=== PATIENT | female | born 1965 | race Caucasian/White ===

== ENCOUNTER 2017-11-30 20:47 | Inpatient (IN) | payer OTHER ==
--- NOTE | 2017-11-30 20:59 | PDOC ---
History of Present Illness - General History Source: Patient Exam Limitations: No Limitations - History of Present Illness Initial Comments: 11/30/17 21:29 The patient is a 52 year old female with a significant PMH of MS who presents to the emergency department with vomiting since earlier today. The patient reports that she woke up at about 3am with a sudden onset of vomiting. The patient describes her emesis as a dark brom in color initially and now is light brown. She denies any belly pain, or diarrhea. She states that she had a normal bowel movement yesterday. She denies any sick contact. The patient denies any other symptoms. She denies any fever, chills, nausea, constipation or urinary symptoms. She denies any chest pain, shortness of breath, headache or dizziness. The patient denies any other complaints. PAST MEDICAL HISTORY: MS PAST SURGICAL HISTORY: no significant history FAMILY HISTORY: no pertinent history SOCIAL HISTORY: Pt lives with family and is employed. MEDICATIONS: reviewed ALLERGIES: As per nursing notes General: No fevers or chills, no weakness, no weight loss HEENT: No change in vision. No sore throat,. No ear pain CardioVascular: No chest pain or shortness of breath Respiratory:No cough, or wheezing. Gastrointestinal:(+) vomiting. no nausea diarrhea or constipation, No rectal bleeding Genitourinary: No dysuria, hematuria, or frequency Musculoskeletal: No joint or muscle pain or swelling Neurologic: No headache, vertigo, dizziness or loss of consciousness Psychiatric: nor depression Skin: No rashes or easy bruising Endocrine: no increased thirst or abnormal weight change Allergic: no skin or latex allergy All other systems reviewed and normal General: Well-nourished well-developed individual, no acute distress HEENT: (+)dry mucous membrane. Throat: Normal, tonsils normal, no erythema or exudate Neck: Supple, no meningeal signs, no lymphadenopathy Eyes::Pupils equal reactive and round, extraocular motion intact Chest: Nontender to palpation Cardiac: S1-S2 normal, regular rate and rhythm, no murmurs rubs or gallops Respiratory: Lungs clear to auscultation bilateral Abdomen: Soft, nondistended, normal bowel sounds, nontender to palpation diffusely Extremities: Warm, dry, no cyanosis, clubbing, or edema Skin: No rashes Neuro: Alert and oriented x3, nonfocal exam, grossly intact, normal gait Psych: Normal mood and affect Documentation prepared by Cathleen Mayberry, acting as diploma medical assistant for Antione Flores MD. <Cathleen Mayberry - Last Filed: 11/30/17 21:29> - General History Source: Patient Exam Limitations: No Limitations - History of Present Illness Initial Comments: 11/30/17 21:45 A portion of this note was documented by scribe services under my direction. I have reviewed the details of the note, within reason, and agree with the documentation. The case summary and management plan written by me. Assessment and plan: This is a 52-year-old female who comes in complaining of nausea and vomiting otherwise no complaints. Patient will be hydrated and basic workup done. On my exam patient did not have any tenderness and had a normal exam 22:30 Patient still nauseous and vomiting post-Zofran. We'll continue to hydrate and give patient Reglan, patient is workup is all normal with the exception of her lipase which is markedly elevated at 1777. We'll obtain a CAT scan to rule out pancreatitis 11/30/17 23:29 Reevaluation patient complaining of increased epigastric pain radiating to her back. We'll give her some morphine for the pain. Patient will be admitted to a inpatient bed Dr. Altman hospitalist service <Antione Flores I - Last Filed: 12/01/17 00:23> - General Chief Complaint: Nausea/Vomiting Stated Complaint: N/V Time Seen by Provider: 11/30/17 20:55 Past History <Cathleen Mayberry - Last Filed: 11/30/17 21:29> - Past Medical History Asthma: Yes COPD: No Other medical history: MS, RA - Suicide/Smoking/Psychosocial Hx Smoking History: Never smoked Have you smoked in the past 12 months: No Number of Cigarettes Smoked Daily: 0 Information on smoking cessation initiated: No Hx Alcohol Use: No Drug/Substance Use Hx: No Substance Use Type: None <Antione Flores I - Last Filed: 12/01/17 00:23> - Past Medical History Allergies/Adverse Reactions: Allergies Allergy/AdvReac Type Severity Reaction Status Date / Time aspirin Allergy Verified 07/20/15 11:18 Penicillins Allergy Verified 07/20/15 11:18 Home Medications: Ambulatory Orders Dimethyl Fumarate [Tecfidera] 240 mg PO BID 07/27/14 Cetirizine HCl [Zyrtec -] 10 mg PO DAILY 07/20/15 Cholecalciferol (Vitamin D3) [Vitamin D] 1,000 unit PO BID 07/20/15 Famotidine [Pepcid -] 20 mg PO BID #14 tablet 07/20/15 Ondansetron [Zofran -] 4 mg PO TID PRN #21 tablet 07/20/15 *Physical Exam - Vital Signs Last Vital Signs Temp Pulse Resp BP Pulse Ox 98.4 F 89 14 121/70 98 11/30/17 20:48 11/30/17 20:48 11/30/17 20:48 11/30/17 20:48 11/30/17 20:48 <Cathleen Mayberry - Last Filed: 11/30/17 21:29> - Vital Signs Last Vital Signs Temp Pulse Resp BP Pulse Ox 98.4 F 89 14 121/70 98 11/30/17 20:48 11/30/17 20:48 11/30/17 20:48 11/30/17 20:48 11/30/17 20:48 <Antione Flores I - Last Filed: 12/01/17 00:23> ED Treatment Course - LABORATORY CBC & Chemistry Diagram: 11/30/17 21:16 11/30/17 21:16 - ADDITIONAL ORDERS Additional order review: 11/30/17 21:16 RBC 4.56 MCV 96.8 H MCHC 33.5 RDW 13.2 MPV 7.9 Neutrophils % 81.6 Lymphocytes % 11.1 Monocytes % 3.4 L Eosinophils % 2.6 Basophils % 1.3 - Medications Given in the ED: ED Medications Discontinued Medications Generic Name Dose Route Start Last Admin Trade Name Freq PRN Reason Stop Dose Admin Albuterol/Ipratropium 1 amp 11/30/17 21:16 11/30/17 21:19 Duoneb - NEB 11/30/17 21:17 1 amp ONCE ONE Administration Ondansetron HCl 8 mg 11/30/17 21:02 11/30/17 21:19 Zofran Injection IVPB 11/30/17 21:03 8 mg ONCE ONE Administration <Cathleen Mayberry - Last Filed: 11/30/17 21:29> - LABORATORY CBC & Chemistry Diagram: 11/30/17 21:16 11/30/17 21:16 <Antione Flores I - Last Filed: 12/01/17 00:23> *DC/Admit/Observation/Transfer <Cathleen Mayberry - Last Filed: 11/30/17 21:29> <Antione Flores I - Last Filed: 12/01/17 00:23> Diagnosis at time of Disposition: Pancreatitis - Discharge Dispostion Condition at time of disposition: Good - Referrals Referrals: Omar Alfaro MD [Primary Care Provider] - - Patient Instructions - Post Discharge Activity
[2017-11-30] MEDS ORDERED: SODIUM CHLORIDE 1,000 ML IV ONE ×2 (21:02→22:31)
[2017-11-30] MEDS ORDERED: ONDANSETRON 4 MG/2 ML VIAL IVPB ONE (21:02)
[2017-11-30] MEDS ORDERED: ALBUTEROL SO4 2.5/IPRATROPIUM 0.5 INH SOL 3 ML VIAL.NEB. NEB ONE ×2 (21:13→21:16)
[2017-11-30] MEDS ORDERED: ONDANSETRON 4 MG/2 ML VIAL ONE (21:20)
[2017-11-30 21:26] LABS: BASO % 1.3 % (0-2.0); EOS % 2.6 % (0-4.5); HEMATOCRIT 44.1 % (32.4-45.2); HEMOGLOBIN 14.8 GM/dl (10.7-15.3); LYMPH % 11.1 % (8-40); MCH 32.4 pg (25.7-33.7); MCHC 33.5 g/dl (32.0-36.0); MEAN CELL VOLUME 96.8 fl (80-96); MEAN PLT VOLUME 7.9 fl (7.5-11.1); MONO % 3.4 % (3.8-10.2); NEUT % 81.6 % (42.8-82.8); PLATELET COUNT 333 K/MM3 (134-434); RBC 4.56 M/mm3 (3.60-5.2); RDW 13.2 % (11.6-15.6); WHITE BLOOD COUNT 7.5 K/mm3 (4.0-10.8)
[2017-11-30 21:33] LABS: ALBUMIN 4.6 g/dl (3.5-5.0); ALK PHOS 64 U/L (32-92); ANION GAP 10 MMOL/L (8-16); BILIRUBIN,TOTAL 0.9 mg/dl (0.2-1.0); BLOOD UREA NITROGEN 15 mg/dl (7-18); CALCIUM 9.2 mg/dl (8.4-10.2); CHLORIDE 102 mmol/L (98-107); CO2 27 mmol/L (22-28); CREATININE 0.7 mg/dl (0.6-1.3); GLUCOSE,RANDOM 97 mg/dl (74-106); POTASSIUM 3.6 mmol/L (3.5-5.1); SGOT/AST 16 U/L (10-42); SGPT/ALT 17 U/L (10-40); SODIUM 139 mmol/L (136-145); TOT PROT 7.5 g/dl (6.4-8.3)
[2017-11-30] MEDS ORDERED: METOCLOPRAMIDE HCL INJECTION 10 MG/2 ML VIAL IVPUSH ONE (22:31)
[2017-11-30 22:40] LABS: LIPASE 1777 U/L (73-393)
[2017-11-30] MEDS ORDERED: morphine CARPU-JECT 4 MG/1 ML DISP.SYRIN IVPUSH ONE (23:28)
[2017-12-01] MEDS ORDERED: morphine SULFATE 4 MG/ML VIAL ONE (00:45)
[2017-12-01] MEDS ORDERED: ONDANSETRON 4 MG/2 ML VIAL IVPUSH PRN (02:20)
[2017-12-01] MEDS ORDERED: LACTATED RINGERS SOLUTION 1,000 ML IV SCH ×2 (02:30→16:30)
[2017-12-01] MEDS ORDERED: ALBUTEROL SO4 0.083% IH SOL 2.5 MG/3 ML VIAL.NEB. NEB PRN (02:38)
--- NOTE | 2017-12-01 02:58 | HP ---
CHIEF COMPLAINT: nausea/vomiting PCP: Loraine HISTORY OF PRESENT ILLNESS: This is a 52 year old female with a significant past medical history of MS, asthma, s/p lap band 6-8y ago who presented to the ED with nausea and vomiting since 3am 11/30/17. She denies abdominal pain or diarrhea. ER course was notable for: (1) Lipase 1777 (2) CT abd/pel (3) Recent Travel: PAST MEDICAL HISTORY: PAST SURGICAL HISTORY: Social History: Smoking: Alcohol: Drugs: Family History: Allergies aspirin Allergy (Verified 07/20/15 11:18) Penicillins Allergy (Verified 07/20/15 11:18) HOME MEDICATIONS: 3 Medication Instructions Recorded Dimethyl Fumarate [Tecfidera] 240 mg PO BID 07/27/14 Cetirizine HCl [Zyrtec -] 10 mg PO DAILY 07/20/15 Cholecalciferol (Vitamin D3) 1,000 unit PO BID 07/20/15 [Vitamin D] Albuterol Sulfate Inhaler - 2 inh PO Q4H PRN 12/01/17 [Ventolin Hfa Inhaler -] Fluticasone/Salmeterol [Advair 1 each IH BID 12/01/17 250-50 Diskus] REVIEW OF SYSTEMS CONSTITUTIONAL: Absent: fever, chills, diaphoresis, generalized weakness, malaise, loss of appetite, weight change HEENT: Absent: rhinorrhea, nasal congestion, throat pain, throat swelling, difficulty swallowing, mouth swelling, ear pain, eye pain, visual changes CARDIOVASCULAR: Absent: chest pain, syncope, palpitations, irregular heart rate, lightheadedness , peripheral edema RESPIRATORY: Absent: cough, shortness of breath, dyspnea with exertion, orthopnea, wheezing, stridor, hemoptysis GASTROINTESTINAL: Absent: abdominal pain, abdominal distension, nausea, vomiting, diarrhea, constipation, melena, hematochezia GENITOURINARY: Absent: dysuria, frequency, urgency, hesitancy, hematuria, flank pain, genital pain MUSCULOSKELETAL: Absent: myalgia, arthralgia, joint swelling, back pain, neck pain SKIN: Absent: rash, itching, pallor HEMATOLOGIC/IMMUNOLOGIC: Absent: easy bleeding, easy bruising, lymphadenopathy, frequent infections ENDOCRINE: Absent: unexplained weight gain, unexplained weight loss, heat intolerance, cold intolerance NEUROLOGIC: Absent: headache, focal weakness or paresthesias, dizziness, unsteady gait, seizure, mental status changes, bladder or bowel incontinence PSYCHIATRIC: Absent: anxiety, depression, suicidal or homicidal ideation, hallucinations. PHYSICAL EXAMINATION Vital Signs - 24 hr 3 11/30/17 20:48 Temperature 98.4 F Pulse Rate 89 Respiratory 14 Rate Blood Pressure 121/70 O2 Sat by Pulse 98 Oximetry (%) GENERAL: Awake, alert, and fully oriented, in no acute distress. HEAD: Normal with no signs of trauma. EYES: Pupils equal, round and reactive to light, extraocular movements intact, sclera anicteric, conjunctiva clear. No lid lag. EARS, NOSE, THROAT: Ears normal, nares patent, oropharynx clear without exudates. Moist mucous membranes. NECK: Normal range of motion, supple without lymphadenopathy, JVD, or masses. LUNGS: Breath sounds equal, clear to auscultation bilaterally. No wheezes, and no crackles. No accessory muscle use. HEART: Regular rate and rhythm, normal S1 and S2 without murmur, rub or gallop. ABDOMEN: Soft, nontender, not distended, normoactive bowel sounds, no guarding, no rebound, no masses. No hepatomegaly or splenomegaly. MUSCULOSKELETAL: Normal range of motion at all joints. No bony deformities or tenderness. No CVA tenderness. UPPER EXTREMITIES: 2+ pulses, warm, well-perfused. No cyanosis. No clubbing. No peripheral edema. LOWER EXTREMITIES: 2+ pulses, warm, well-perfused. No calf tenderness. No peripheral edema. NEUROLOGICAL: Cranial nerves II-XII intact. Normal speech. Normal gait. PSYCHIATRIC: Cooperative. Good eye contact. Appropriate mood and affect. SKIN: Warm, dry, normal turgor, no rashes or lesions noted, normal capillary refill. Laboratory Results - last 24 hr 3 11/30/17 11/30/17 11/30/17 11/30/17 21:16 21:16 21:16 22:39 WBC 7.5 RBC 4.56 Hgb 14.8 Hct 44.1 MCV 96.8 H MCH 32.4 MCHC 33.5 RDW 13.2 Plt Count 333 MPV 7.9 Absolute Neuts (auto) 6.1 Neutrophils % 81.6 Lymphocytes % 11.1 Monocytes % 3.4 L Eosinophils % 2.6 Basophils % 1.3 Sodium 139 Potassium 3.6 Chloride 102 Carbon Dioxide 27 Anion Gap 10 BUN 15 Creatinine 0.7 Creat Clearance w eGFR > 60 Random Glucose 97 Calcium 9.2 Total Bilirubin 0.9 AST 16 ALT 17 Alkaline Phosphatase 64 Creatine Kinase 52 Troponin I < 0.03 Total Protein 7.5 Albumin 4.6 Lipase 1777 H Stool Occult Blood Negative Radiology Reports CT Abd/Pel with contrast THIS IS A PRELIMINARY REPORT FROM IMAGING EXTRUSION MANAGER IMPRESSION: Lap band surrounding the mid stomach with distention of the proximal stomach suggesting a component of outlet obstruction. Cholelithiasis Individualized dose optimization techniques were used for this CT. THIS DOCUMENT HAS BEEN ELECTRONICALLY SIGNED Juan Francisco Soliman MD 12/01/2017 00:25 EST ASSESSMENT/PLAN: 52yF with PMH MS, RA, asthma, gastric lap band 6-8 years ago presented to the ED with nausea/vomiting since 3am on 11/30/17. Gastric outlet obstruction secondary to lap band - Dr Larson, surgery, consulted - Pt agrees to removal of lap band if needed. - NPO except ice chips and meds elevated Lipase - pancreas normal on CT scan with absence of pain - monitor MS - cont home meds, pt has at bedside with her Asthma - pt requesting rescue inhaler at bedside as typically needs during night. DVT PPX - heparin 5000u TID FEN - LR @ 100c/hr - BMP in am - NPO except ice chips. Dispo: pt currently requires further inpatient management of her emergent condition. Visit type - Emergency Visit Emergency Visit: Yes ED Registration Date: 12/01/17 Care time: The patient presented to the Emergency Department on the above date and was hospitalized for further evaluation of their emergent condition. - New Patient This patient is new to me today: Yes Date on this admission: 12/01/17 - Critical Care Critical Care patient: No
[2017-12-01 05:30] VITALS: BMI 25.9
[2017-12-01] MEDS: HEPARIN NA (PORCINE) 5,000 UNITS/ML 1ML VIAL SQ SCH ×4 (07:03→21:37)
--- NOTE | 2017-12-01 07:45 | CONSULT ---
Consult Consult Specialty:: General Surgery Reason for Consultation:: Intractable Nausea and Vomiting - History of Present Illness Chief Complaint: Nausea and vomiting History of Present Illness: 52yo female PMH s/p lap-band in [place] - History Source History Provided By: Patient, Medical Record Limitations to Obtaining History: No Limitations - Past Medical History ...LMP Comment: 52 YEARS OLD ...: No - Alcohol/Substance Use Hx Alcohol Use: No (OCCASIONALLY) - Smoking History Smoking history: Never smoked Have you smoked in the past 12 months: No Aproximately how many cigarettes per day: 0 Home Medications - Allergies Allergies/Adverse Reactions: Allergies Allergy/AdvReac Type Severity Reaction Status Date / Time aspirin Allergy Verified 07/20/15 11:18 Penicillins Allergy Verified 07/20/15 11:18 - Home Medications Home Medications: Ambulatory Orders Dimethyl Fumarate [Tecfidera] 240 mg PO BID 07/27/14 Cetirizine HCl [Zyrtec -] 10 mg PO DAILY 07/20/15 Cholecalciferol (Vitamin D3) [Vitamin D] 1,000 unit PO BID 07/20/15 Albuterol Sulfate Inhaler - [Ventolin Hfa Inhaler -] 2 inh PO Q4H PRN 12/01/17 Fluticasone/Salmeterol [Advair 250-50 Diskus] 1 each IH BID 12/01/17 Physical Exam Vital Signs: Vital Signs Temperature 97.7 F 12/01/17 06:33 Pulse Rate 54 L 12/01/17 06:33 Respiratory Rate 18 12/01/17 06:33 Blood Pressure 101/55 L 12/01/17 06:33 O2 Sat by Pulse Oximetry (%) 95 12/01/17 06:33 Problem List - Problems (1) Pancreatitis Assessment/Plan: NPO and IVF hydration NGT deompression GI Evaluation antiemitic therapy Bariatric surgery evaluation serial labs Review CTsan Thank you for the opportunity to participate in the care of this patient. Code(s): K85.90 - ACUTE PANCREATITIS WITHOUT NECROSIS OR INFECTION, UNSP Qualifiers: Chronicity: acute Pancreatitis type: unspecified pancreatitis type Acute pancreatitis complication: no infection or necrosis Qualified Code(s): K85.90 - Acute pancreatitis without necrosis or infection, unspecified (2) Vomiting and diarrhea Code(s): R11.10 - VOMITING, UNSPECIFIED; R19.7 - DIARRHEA, UNSPECIFIED (3) History of laparoscopic adjustable gastric banding Code(s): Z98.84 - BARIATRIC SURGERY STATUS
[2017-12-01 07:56] LABS: HEMATOCRIT 36.1 % (32.4-45.2); HEMOGLOBIN 12.1 GM/dl (10.7-15.3); LYMPH % 20.2 % (8-40); MCH 32.6 pg (25.7-33.7); MCHC 33.4 g/dl (32.0-36.0); MEAN CELL VOLUME 97.6 fl (80-96); MEAN PLT VOLUME 7.5 fl (7.5-11.1); MONO % 6.7 % (3.8-10.2); NEUT % 70.1 % (42.8-82.8); PLATELET COUNT 250 K/MM3 (134-434); RDW 13.6 % (11.6-15.6); WHITE BLOOD COUNT 6.7 K/mm3 (4.0-10.8)
[2017-12-01] MEDS: ALBUTEROL SO4 8 GM HFA INHALER IH PRN (08:17)
--- NOTE | 2017-12-01 08:23 | PN ---
Physical Exam: SUBJECTIVE: Patient seen and examined, reports epigastric pain nausea and vomiting patient is actively vomiting during exam OBJECTIVE:patient is a 52-year-old female with a past medical history of MS, asthma, S/PE LAP-BAND placed 8 years ago ([place]) patient was admitted for an emergency department for a gastric outlet obstruction. Vital Signs Period Temp Pulse Resp BP Sys/Winn Pulse Ox Last 24 Hr 97.7 F-98.4 F 54-89 14-18 101-121/46-70 95-98 GENERAL: The patient is awake, alert, and fully oriented, in no acute distress. HEAD: Normal with no signs of trauma. EYES: PERRL, extraocular movements intact, sclera anicteric, conjunctiva clear. No ptosis. ENT: Ears normal, nares patent, oropharynx clear without exudates, moist mucous membranes. NECK: Trachea midline, full range of motion, supple. LUNGS: Breath sounds equal, clear to auscultation bilaterally, no wheezes, no crackles, no accessory muscle use. HEART: Regular rate and rhythm, S1, S2 without murmur, rub or gallop. ABDOMEN: Soft,diffuse abdominal tenderness, nondistended, normoactive bowel sounds, no guarding, no rebound, no hepatosplenomegaly, no masses. EXTREMITIES: 2+ pulses, warm, well-perfused, no edema. NEUROLOGICAL: Cranial nerves II through XII grossly intact. Normal speech, gait not observed. PSYCH: Normal mood, normal affect. SKIN: Warm, dry, normal turgor, no rashes or lesions noted Laboratory Results - last 24 hr 11/30/17 11/30/17 11/30/17 21:16 21:16 21:16 WBC 7.5 RBC 4.56 Hgb 14.8 Hct 44.1 MCV 96.8 H MCH 32.4 MCHC 33.5 RDW 13.2 Plt Count 333 MPV 7.9 Absolute Neuts (auto) 6.1 Neutrophils % 81.6 Lymphocytes % 11.1 Monocytes % 3.4 L Eosinophils % 2.6 Basophils % 1.3 Sodium 139 Potassium 3.6 Chloride 102 Carbon Dioxide 27 Anion Gap 10 BUN 15 Creatinine 0.7 Creat Clearance w eGFR > 60 Random Glucose 97 Calcium 9.2 Total Bilirubin 0.9 AST 16 ALT 17 Alkaline Phosphatase 64 Creatine Kinase Troponin I < 0.03 Total Protein 7.5 Albumin 4.6 Lipase 1777 H Stool Occult Blood 11/30/17 11/30/17 12/01/17 21:16 22:39 07:35 WBC 6.7 RBC 3.70 Hgb 12.1 Hct 36.1 D MCV 97.6 H MCH 32.6 MCHC 33.4 RDW 13.6 Plt Count 250 MPV 7.5 Absolute Neuts (auto) 4.7 Neutrophils % 70.1 Lymphocytes % 20.2 Monocytes % 6.7 Eosinophils % 2.0 Basophils % 1.0 Sodium Potassium Chloride Carbon Dioxide Anion Gap BUN Creatinine Creat Clearance w eGFR Random Glucose Calcium Total Bilirubin AST ALT Alkaline Phosphatase Creatine Kinase 52 Troponin I Total Protein Albumin Lipase Stool Occult Blood Negative Active Medications Generic Name Dose Route Start Last Admin Trade Name Freq PRN Reason Stop Dose Admin Albuterol Sulfate 1 amp 12/01/17 02:38 Ventolin 0.083% Nebulizer Soln - NEB Q4H PRN SHORT OF BREATH/WHEEZING Albuterol Sulfate 2 puff 12/01/17 02:42 12/01/17 08:17 Ventolin Hfa Inhaler - IH 2 puff Q4H PRN Administration SOB/wheezing Budesonide/Formoterol Fumarate 2 puff 12/01/17 10:00 Symbicort 80/4.5mcg - IH BID JYOTI Heparin Sodium (Porcine) 5,000 unit 12/01/17 06:00 12/01/17 07:03 Heparin - SQ Not Given TID JYOTI Lactated Ringer's 1,000 mls @ 100 mls/hr 12/01/17 02:30 12/01/17 03:00 Lactated Ringers Solution IV 100 mls/hr ASDIR JYOTI Administration Magnesium Sulfate/Dextrose 1 gm in 100 mls @ 100 mls/hr 12/01/17 08:30 08:17 Magnesium 1gm/D5w - IVPB 12/01/17 09:29 100 mls/hr ONCE ONE Administration Non-Formulary Medication 240 mg 12/01/17 10:00 Dimethyl Fumarate [Tecfidera] PO BID JYOTI Ondansetron HCl 4 mg 12/01/17 02:20 Zofran Injection IVPUSH Q6H PRN NAUSEA IMAGING ct of abdomen and pelvis with contrast: Status post gastric lap banding to be at the junction of the gastric fundus and body were dilated gastric fundus and air-fluid ON suggestion of a small hiatal hernia, slightly over distended gallbladder with a small gallstone identified L CT evidence of acute cholecystitis, small right renal upper pole simple cyst measuring 1.3 cm, as per radiologist Dr. Barnett ASSESSMENT/PLAN: 1) Gastric outlet obstruction secondary to lap band -cases discussed with bariatric surgeon Dr. Lancaster - pt to remain npo w/ivf - elevated Lipase likely secondary to vomiting lipase is now WNL 2) MS - cont home meds, pt has at bedside with her 3) pulm Asthma - no acute exacerbation at this time, albuterol when necessary DVT PPX - heparin 5000u TID FEN - LR @ 100c/hr - BMP in am - NPO except ice chips. Dispo: pt currently requires further inpatient management of her emergent condition. Visit type - Emergency Visit Emergency Visit: Yes ED Registration Date: 12/01/17 Care time: The patient presented to the Emergency Department on the above date and was hospitalized for further evaluation of their emergent condition. - New Patient This patient is new to me today: Yes Date on this admission: 12/01/17 - Critical Care Critical Care patient: No - Discharge Referral Referred to [facility] No
[2017-12-01 08:29] LABS: ANION GAP 6 MMOL/L (8-16); BLOOD UREA NITROGEN 12 mg/dl (7-18); CALCIUM 8.5 mg/dl (8.4-10.2); CHLORIDE 109 mmol/L (98-107); CO2 27 mmol/L (22-28); CREATININE 0.6 mg/dl (0.6-1.3); GLUCOSE,RANDOM 89 mg/dl (74-106); MAGNESIUM 2.1 mg/dL (1.8-2.4); PHOSPHOROUS 4.1 mg/dl (2.5-4.6); POTASSIUM 4.1 mmol/L (3.5-5.1); SODIUM 142 mmol/L (136-145)
[2017-12-01] MEDS ORDERED: MAGNESIUM 1GM/D5W - 1 GM/100 ML IVPB IVPB ONE (08:30)
[2017-12-01 09:06] LABS: ALBUMIN 3.4 g/dl (3.5-5.0); BILIRUBIN,TOTAL 0.8 mg/dl (0.2-1.0); TOT PROT 5.7 g/dl (6.4-8.3)
[2017-12-01 09:07] LABS: BILIRUBIN,DIRECT 0.1 mg/dL (0.0-0.3)
[2017-12-01] MEDS ORDERED: CHOLECALCIFEROL (VITAMIN D3) 1,000 UNIT TABLET (FP) PO SCH (10:00)
[2017-12-01] MEDS ORDERED: PATIENT'S OWN MEDICATION (NON-FORMULARY) (Cetirizine Hcl 10 MG) PO SCH (10:00)
[2017-12-01] MEDS ORDERED: PATIENT'S OWN MEDICATION (NON-FORMULARY) (Dimethyl Fumarate [Tecfidera] 240 MG) PO SCH (10:00)
[2017-12-01] MEDS: BUDESONIDE/FORMETEROL FUMARATE 80/4.5 mcg INHALER IH SCH ×3 (10:41→21:37)
[2017-12-01] MEDS ORDERED: BUPIVACAINE HCL/PF 2.5 MG/ML - 30 ML VIAL IJ ONE (13:19)
[2017-12-01] MEDS ORDERED: LIDOCAINE HCL/PF 2% SDV 5ML VIAL ONE (14:04)
[2017-12-01] MEDS ORDERED: SUCCINYLCHOLINE CHLORIDE 200 MG/10 ML VIAL ONE (14:05)
[2017-12-01] MEDS ORDERED: MIDAZOLAM HCL 2 MG/2 ML SINGLE DOSE VIAL ONE (14:05)
[2017-12-01] MEDS ORDERED: ROCURONIUM BROMIDE 50 MG/5 ML VIAL ONE (14:05)
[2017-12-01] MEDS ORDERED: DEXAMETHASONE SOD PHOSPHATE 4 MG/1 ML VIAL ONE (14:06)
[2017-12-01] MEDS ORDERED: ONDANSETRON 4 MG/2 ML VIAL ONE (14:06)
--- NOTE | 2017-12-01 15:02 | EKG ---
Test Reason : Blood Pressure : / mmHG Vent. Rate : 053 BPM Atrial Rate : 053 BPM P-R Int : 182 ms QRS Dur : 090 ms QT Int : 440 ms P-R-T Axes : 064 045 051 degrees QTc Int : 412 ms SINUS BRADYCARDIA OTHERWISE NORMAL ECG WHEN COMPARED WITH ECG OF 27-JUL-2014 13:33, NO SIGNIFICANT CHANGE WAS FOUND Confirmed by GERARD LUA MD ([id number]) on 12/01/2017 3:02:04 PM Referred By: MARINO Confirmed By:GERARD LUA MD
[2017-12-01] MEDS ORDERED: NEOSTIGMINE METHYLSULFATE 0.5 MG/ML - 10 ML MDV ONE (15:52)
[2017-12-01] MEDS ORDERED: KETOROLAC TROMETHAMINE 30 MG/1 ML VIAL ONE (15:52)
[2017-12-01] MEDS ORDERED: GLYCOPYRROLATE 0.2 MG/1 ML VIAL ONE (15:52)
[2017-12-01] MEDS ORDERED: oxyCODONE HCL 5 MG TABLET PO PRN (16:09)
[2017-12-01] MEDS ORDERED: SODIUM CHLORIDE 1,000 ML IV SCH (16:15)
--- NOTE | 2017-12-01 16:15 | OP ---
Operative Note - Note: Operative Date: 12/01/17 Pre-Operative Diagnosis: Vomiting. Malfunctioing mechanical device secondary to gastric band Operation: Removal of gastric band plus subcutaneous port component. Excision of fibrous capsule around stomach Findings: Band with fibrous capsule around it and stomach. Moderately dilated stomach above the band Post-Operative Diagnosis: Same as Pre-op (Fibrous capsule around band and stomach) Surgeon: Hardeep Lancaster Anesthesia: General Specimens Removed: Gastric Band plus subcutaneous port Estimated Blood Loss (mls): 20 Operative Report Dictated: Yes
[2017-12-01] MEDS ORDERED: PROMETHAZINE HCL 25 MG/1 ML VIAL IVPB PRN (16:25)
--- NOTE | 2017-12-01 16:59 | CONS ---
DATE OF CONSULTATION: 12/01/2017 HISTORY OF PRESENT ILLNESS: This is a 52-year-old woman who presented to the emergency room with vomiting of a few days duration. The patient was noted to have a LAP-Band performed approximately 6 to 7 years ago in [place]. She had it maintained or adjusted in multiple areas including [place] and also in [place]. The patient states the last adjustment was over a year but the vomiting started suddenly. PAST MEDICAL HISTORY: Significant for multiple sclerosis and asthma. MEDICATIONS: The patient takes inhalers with Ventolin, she takes Advair, and she also takes Zyrtec and Tecifdera. ALLERGIES: She has allergies to ASPIRIN and PENICILLIN. PHYSICAL EXAMINATION: General: The patient is awake, alert, and in no acute distress but does have occasional vomiting throughout the interview. The patient appears well nourished though slightly dehydrated. Abdomen: Significant for a low to left costal margin subcutaneous port that appears to be slightly rotated. The abdomen is nondistended and is soft and nontender to palpation. Extremities: Show no signs of swelling, edema or DVT. LABORATORY DATA: The patients labs are essentially within normal limits except for a lipase on admission which was over 1700; however, on morning labs it is down to slightly over 200. IMPRESSION: Partially slipped gastric band causing obstruction and vomiting. PLAN: Discussed with the patient and she has decided because of the multiple incidences of intermittent vomiting that she would like the band removed intraoperatively. The plan will be to schedule for urgent removal of a gastric band plus subcutaneous port. Hermelinda [id number]
--- NOTE | 2017-12-01 17:47 | OP ---
DATE OF OPERATION: 12/01/2017 PREOPERATIVE DIAGNOSES: 1. Vomiting. 2. Mechanical complication of implantable device secondary to gastric band. POSTOPERATIVE DIAGNOSES: 1. Vomiting. 2. Mechanical complication of implantable device secondary to gastric band. 3. Fibrous capsule around the band and the stomach. PROCEDURE PERFORMED: 1. Removal of gastric band plus subcutaneous port component. 2. Excision of fibrous capsule around the band and stomach. 3. Diagnostic laparoscopy. OPERATING SURGEON: Dylon Walters M.D. ANESTHESIA: General. OPERATIVE PROCEDURE: The patient was brought into the operating room, placed on the operating table in the supine position. All precautions were taken initially including padding for the back and the feet, and Venodyne boots were placed on both lower extremities. At that point, the abdomen was prepped and draped in the usual manner. A Veress needle was placed in the left upper quadrant, and a pneumoperitoneum established. Number 12 bladeless with trocar was placed in the left upper quadrant. Through that trocar, laparoscopic camera was placed. Under direct vision, a number 5 bladeless trocar was placed just to the right of the midline in the right upper quadrant followed by a number 12 bladeless trocar below the left costal margin. A Dinah liver retractor was then placed in the epigastrium to retract left lobe of liver. Patient was then placed in 20-degree reverse Trendelenburg position. The band was noted around the top of the stomach, and there was noted to be dilated stomach above the band significant for the patient's symptoms. At this point, the band tubing was grabbed by the operating surgeon and used to rotate the band. There was scar tissue and a fibrous capsule over the band on the lesser curvature side, and this was dissected off the band until the entire band was free on the lesser curvature side of the stomach. The band tubing was then retracted to the patient's right side as the fibrous capsule over the greater curvature on left side of the band was dissected with electrocautery until the entire band was free, easily seen and also movable. At this point, the band was then cut at its takeoff through the subcutaneous port. The band was then cut, split with the laparoscopic scissors until the band was sprung open from around the stomach. The band was then cut into, and both pieces were removed from around the stomach, and they were freed through numbered trocar site and sent off the field as a specimen to Pathology. Attention was now directed to the fibrous capsule around the band. This was lifted up, and care was taken to dissect the fibrous capsule off the anterior stomach wall with laparoscopic scissors. This was done from inferior to superior. About mid portion it was noted that the capsule was now embedded deep into the stomach wall and it was going to be dangerous to proceed without potentially causing injury to the stomach. With the stomach's noted relief with the removal of the band, it was decided not to proceed any further with dissection. At this point, under direct vision, all trocars were removed from the abdominal cavity, and the pneumoperitoneum was released. The lateral left subcostal trocar site incision was extended laterally and dissected was continued with electrocautery down to the fibrous capsule around the subcutaneous port. This fibrous capsule was dissected off the port, and the port was then removed and sent off the field as a specimen to Pathology with the rest of the specimen. At this point, all trocar sites received 0.25% Marcaine. The lateral port site was closed with 3-0 Vicryl on the subcutaneous then all incisions were closed with 4-0 Biosyn in subcuticular fashion. Dressings were applied. Patient was awoken from anesthesia and transferred out of the operating room to recovery room in stable condition. EXPECTED BLOOD LOSS: 20 mL. DYLON WALTERS M.D. [id number]
[2017-12-01] MEDS ORDERED: PT OWN MED DRAWER 7, Y5N ONE ×2 (18:56→21:11)
[2017-12-01] MEDS: FAMOTIDINE 20 MG/50 ML IVPB 20 MG/50 ML MG IVPB SCH (21:20)
[2017-12-02 06:24] VITALS: BP 102/69; PULSE 80; TEMP 98
[2017-12-02] MEDS ORDERED: PT OWN MED DRAWER 7, Y5N ONE ×3 (06:47→09:21)
[2017-12-02] MEDS: HEPARIN NA (PORCINE) 5,000 UNITS/ML 1ML VIAL SQ SCH (06:49)
[2017-12-02] MEDS: ALBUTEROL SO4 8 GM HFA INHALER IH PRN (06:50)
[2017-12-02] MEDS ORDERED: DOCUSATE SODIUM 100 MG CAPSULE (FP) PO SCH (08:00)
[2017-12-02 08:20] LABS: HEMOGLOBIN 11.9 GM/dl (10.7-15.3); MCH 32.4 pg (25.7-33.7); MCHC 33.1 g/dl (32.0-36.0); MEAN CELL VOLUME 97.9 fl (80-96); PLATELET COUNT 218 K/MM3 (134-434); RBC 3.68 M/mm3 (3.60-5.2); RDW 13.4 % (11.6-15.6); WHITE BLOOD COUNT 7.8 K/mm3 (4.0-10.8)
[2017-12-02 08:34] LABS: ALBUMIN 3.5 g/dl (3.5-5.0); ALK PHOS 48 U/L (32-92); ANION GAP 6 MMOL/L (8-16); BILIRUBIN,TOTAL 0.7 mg/dl (0.2-1.0); BLOOD UREA NITROGEN 11 mg/dl (7-18); CALCIUM 8.5 mg/dl (8.4-10.2); CHLORIDE 105 mmol/L (98-107); CO2 27 mmol/L (22-28); CREATININE 0.7 mg/dl (0.6-1.3); GLUCOSE,RANDOM 87 mg/dl (74-106); POTASSIUM 3.6 mmol/L (3.5-5.1); SGOT/AST 28 U/L (10-42); SGPT/ALT 23 U/L (10-40); SODIUM 138 mmol/L (136-145); TOT PROT 5.8 g/dl (6.4-8.3)
[2017-12-02] MEDS: FAMOTIDINE 20 MG/50 ML IVPB 20 MG/50 ML MG IVPB SCH (09:29)
[2017-12-02] MEDS: BUDESONIDE/FORMETEROL FUMARATE 80/4.5 mcg INHALER IH SCH (09:29)
--- NOTE | 2017-12-02 11:36 | DS ---
Physical Exam: SUBJECTIVE: Patient seen and examined, Is resting comfortably in bed tolerating diet denies any pain reports flatulence. OBJECTIVE:This is a 52 year old female with a significant past medical history of MS, asthma, s/p lap band 6-8y ago who presented to the ED with nausea and vomiting since 3am 11/30/17. She denies abdominal pain or diarrhea. ER course was notable for: (1) Lipase 1777 (2) CT abd/pel Vital Signs Period Temp Pulse Resp BP Sys/Winn Pulse Ox Last 24 Hr 97.7 F-98.0 F 53-80 12-18 93-126/37-69 97-100 PHYSICAL EXAM GENERAL: The patient is awake, alert, and fully oriented, in no acute distress. HEAD: Normal with no signs of trauma. EYES: PERRL, extraocular movements intact, sclera anicteric, conjunctiva clear. ENT: Ears normal, nares patent, oropharynx clear without exudates, moist mucous membranes. NECK: Trachea midline, full range of motion, supple. LUNGS: Breath sounds equal, clear to auscultation bilaterally, no wheezes, no crackles, no accessory muscle use. HEART: Regular rate and rhythm, S1, S2 without murmur, rub or gallop. ABDOMEN: Soft, Hypoactive bowel sounds, surgical dressings clean dry and intact , nondistended, normoactive bowel sounds, no guarding, no rebound, no hepatosplenomegaly, no masses. EXTREMITIES: 2+ pulses, warm, well-perfused, no edema. NEUROLOGICAL: Cranial nerves II through XII grossly intact. Normal speech, gait not observed. PSYCH: Normal mood, normal affect. SKIN: Warm, dry, normal turgor, no rashes or lesions noted. LABS Laboratory Results - last 24 hr 12/01/17 12/01/17 12/02/17 11:16 16:52 08:00 WBC RBC Hgb Hct MCV MCH MCHC RDW Plt Count MPV Sodium 138 Potassium 3.6 Chloride 105 Carbon Dioxide 27 Anion Gap 6 L BUN 11 Creatinine 0.7 Creat Clearance w eGFR > 60 POC Glucometer 91 Random Glucose 87 Calcium 8.5 Total Bilirubin 0.7 AST 28 D ALT 23 D Alkaline Phosphatase 48 Total Protein 5.8 L Albumin 3.5 Urine HCG, Qual Negative 12/02/17 08:00 WBC 7.8 RBC 3.68 Hgb 11.9 Hct 36.0 MCV 97.9 H MCH 32.4 MCHC 33.1 RDW 13.4 Plt Count 218 MPV 8.0 Sodium Potassium Chloride Carbon Dioxide Anion Gap BUN Creatinine Creat Clearance w eGFR POC Glucometer Random Glucose Calcium Total Bilirubin AST ALT Alkaline Phosphatase Total Protein Albumin Urine HCG, Qual IMAGING ct of abdomen and pelvis with contrast: Status post gastric lap banding to be at the junction of the gastric fundus and body were dilated gastric fundus and air-fluid ON suggestion of a small hiatal hernia, slightly over distended gallbladder with a small gallstone identified L CT evidence of acute cholecystitis, small right renal upper pole simple cyst measuring 1.3 cm, as per radiologist Dr. Barnett [facility]SE: 1) Gastric outlet obstruction secondary to lap band s/p Exploratory laparotomy, lap band removal, 12/01 2017 -Patient tolerating diet on postoperative day 1, no leukocytosis noted patient is afebrile - elevated Lipase likely secondary to vomiting lipase is now WNL 2) MS - cont home meds, pt has at bedside with her 3) pulm Asthma - no acute exacerbation at this time, albuterol when necessary PLAN: - discharge home with strict follow up with Dr Lancaster in 2 weeks - return precautions reviewed, patient verbalizes understanding Date of Admission:12/01/17 Date of Discharge: 12/02/17 Minutes to complete discharge: 45 Discharge Summary Reason For Visit: PANCREATITIS Current Active Problems History of laparoscopic adjustable gastric banding (Acute) Pancreatitis (Acute) Condition: Good - Instructions Referrals: Omar Alfaro MD [Primary Care Provider] - - Home Medications Comprehensive Discharge Medication List: Ambulatory Orders Dimethyl Fumarate [Tecfidera] 240 mg PO BID 07/27/14 Cetirizine HCl [Zyrtec -] 10 mg PO DAILY 07/20/15 Cholecalciferol (Vitamin D3) [Vitamin D] 1,000 unit PO BID 07/20/15 Albuterol Sulfate Inhaler - [Ventolin Hfa Inhaler -] 2 inh PO Q4H PRN 12/01/17 Fluticasone/Salmeterol [Advair 250-50 Diskus] 1 each IH BID 12/01/17 - Discharge Referral Referred to [facility] No
[2017-12-02 12:26] LABS: LIPASE 61 U/L (73-393)
--- NOTE | 2017-12-05 16:57 | PATH ---
Surgical Pathology Report Patient Name: NATALIYA LINDSAY Med. Rec. #: [id number] /Age/Gender: 1965 (Age: 52) / F Account: [id number] Location: [facility] Taken: 11/30/2017 Received: 12/02/2017 Reported: 12/05/2017 Physicians: Hardeep Lancaster M.D. PHYSICIAN EMERGENCY DEPT Specimen(s) Received GASTRIC BAND AND PORT Clinical History Vomiting, slipped gastric band Final Diagnosis GASTRIC BAND AND PORT, REMOVAL; CONSIST OF GASTRIC BAND AND PORT. GROSS EXAMINATION ONLY. Electronically Signed Rishi Lombardi M.D. Gross Description Received fresh labeled "gastric band and port," is a 9.7 x 1.4 x 0.6 cm white, rubbery, focally disrupted gastric band. Also received within the same container is a 24 cm in length portion of white tubing. Additionally, there is a 2.5 cm in diameter x 1.3 cm in depth white, circular gastric port. The port displays a 15 cm in length portion of tubing extending from one aspect. No soft tissue is present. No sections are submitted, gross only. /12/02/2017 saudi12/02/2017
== END 2017-12-02 13:05 | disposition home or self-care (01) | DRG 791 ==
LOC: FER 20:47 → FM/S 12-01 01:01
PROVIDERS: ADMIT Internal Medicine; ATTEND Nurse Practitioner Family
PROC: 0DP64YZ Removal of Other Device from Stomach, Percutaneous Endoscopic Approach (ICD-10-PCS; principal; 2017-12-01 15:06)
DX: T85.598A Other mechanical complication of other gastrointestinal prosthetic devices, implants and grafts, initial encounter (principal); K31.89 Other diseases of stomach and duodenum; J45.909 Unspecified asthma, uncomplicated; G35 Multiple sclerosis; K31.1 Adult hypertrophic pyloric stenosis; Y83.9 Surgical procedure, unspecified as the cause of abnormal reaction of the patient, or of later complication, without mention of misadventure at the time of the procedure
CPT/HCPCS: 36415; 74177-TC; 74230-TC-FY; 80048; 80053; 80076; 82150; 82272; 82550; 82607; 82962; 83690; 83735; 84100; 84484; 84703; 85025; 85027; 88300-TC; 93005; 94760; 99284-25; J1644; J7030; J7620

== ENCOUNTER 2019-01-15 11:49 | Inpatient (IN) | payer OTHER ==
[2019-01-10 16:13] VITALS: BMI 39.1
[~2019-01-15 11:49] MED LIST: ALBUTEROL SO4 8 GM HFA INHALER IH PRN
[2019-01-15] MEDS ORDERED: BUPIVACAINE HCL 0.25% 125 MG/50 ML VIAL ONE (12:44)
[2019-01-15] MEDS ORDERED: BUPIVACAINE LIPOSOME/PF (EXPAREL) 266 MG/20 ML VIAL ONE (13:08)
[2019-01-15] MEDS ORDERED: MIDAZOLAM HCL 2 MG/2 ML SINGLE DOSE VIAL ONE (13:08)
[2019-01-15] MEDS ORDERED: BUPIVACAINE HCL/PF 2.5 MG/ML - 30 ML VIAL IJ ONE (13:09)
[2019-01-15] MEDS ORDERED: BUPIVACAINE HCL/PF 0.25% (2.5MG/ML) 10 ML VIAL IJ ONE ×2 (13:21→15:10)
--- NOTE | 2019-01-15 13:31 | HP ---
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 Pulmonary: Yes: Sleep Apnea - Past Surgical History Past Surgical History: Yes: Additional Past Surgical History: Lap band placement - Advance Directives Advance Directives: Yes: Health Care Proxy - Smoking History Smoking history: Never smoked Have you smoked in the past 12 months: No Aproximately how many cigarettes per day: 0 - Alcohol/Substance Use Hx Alcohol Use: No (OCCASIONALLY) - Social History ADL: Independent Home Medications - Allergies Allergies/Adverse Reactions: Allergies Allergy/AdvReac Type Severity Reaction Status Date / Time Penicillins Allergy Severe Itching Verified 01/10/19 16:02 aspirin Allergy Itching Verified 01/10/19 16:02 ANTIBIOTICS Allergy Mild Itching Uncoded 01/10/19 16:02 - Home Medications Home Medications: Ambulatory Orders Dimethyl Fumarate [Tecfidera] 240 mg PO BID 07/27/14 Cetirizine HCl [Zyrtec -] 10 mg PO DAILY 07/20/15 Cholecalciferol (Vitamin D3) [Vitamin D3] 1,000 unit PO BID 07/20/15 Albuterol Sulfate Inhaler - [Ventolin HFA Inhaler -] 2 inh PO Q4H PRN 12/01/17 Fluticasone/Salmeterol [Advair 250-50 Diskus] 2 each IH DAILY 12/01/17 Montelukast Sodium [Singulair] 10 mg PO HS 01/10/19 Docusate Sodium [Colace -] 100 mg PO TID #90 capsule 01/15/19 Famotidine [Pepcid] 20 mg PO BID #60 tablet 01/15/19 Ondansetron [Zofran -] 8 mg PO TID #30 tablet 01/15/19 Oxycodone HCl/Acetaminophen [Percocet 5-325 mg Tablet] 1 - 2 tab PO Q6H #28 tab MDD 4 01/15/19 Family Medical History Family History: Unremarkable Review of Systems - Review of Systems Constitutional: denies: Chills, Fever Neck: reports: No Symptoms Cardiovascular: reports: No Symptoms Respiratory: reports: No Symptoms Gastrointestinal: reports: No Symptoms Neurological: reports: No Symptoms Pain Intensity: 0 Physical Examination Vital Signs: Vital Signs Temperature 97.5 F L 01/15/19 12:28 Pulse Rate 76 01/15/19 12:28 Respiratory Rate 18 01/15/19 12:28 Blood Pressure 134/74 01/15/19 12:28 O2 Sat by Pulse Oximetry (%) 94 L 01/15/19 12:30 Constitutional: Yes: Calm Neck: Yes: WNL Cardiovascular: Yes: WNL Respiratory: Yes: WNL Gastrointestinal: Yes: Soft, Abdomen, Obese Neurological: Yes: Alert, Oriented Problem List - Problems (1) Morbid obesity due to excess calories Code(s): E66.01 - MORBID (SEVERE) OBESITY DUE TO EXCESS CALORIES (2) BMI 39.0-39.9,adult Code(s): Z68.39 - BODY MASS INDEX (BMI) 39.0-39.9, ADULT (3) Obstructive sleep apnea Code(s): G47.33 - OBSTRUCTIVE SLEEP APNEA (ADULT) (PEDIATRIC) Assessment/Plan Laparoscopic possible open vertical sleeve gastrectomy possible liver biopsy upper endoscopy
[2019-01-15] MEDS ORDERED: fentaNYL CITRATE 250 MCG/5 ML VIAL ONE (13:59)
[2019-01-15] MEDS ORDERED: ceFAZolin SODIUM 1 GM VIAL ONE (14:15)
[2019-01-15] MEDS ORDERED: ROCURONIUM BROMIDE 50 MG/5 ML SYRINGE ONE (14:15)
[2019-01-15] MEDS ORDERED: ONDANSETRON 4 MG/2 ML VIAL ONE ×2 (14:30→15:28)
[2019-01-15] MEDS ORDERED: DEXAMETHASONE SOD PHOSPHATE 4 MG/1 ML VIAL ONE (14:30)
[2019-01-15] MEDS ORDERED: NEOSTIGMINE METHYLSULFATE 0.5 MG/ML - 10 ML MDV ONE (15:11)
[2019-01-15] MEDS ORDERED: GLYCOPYRROLATE 0.2 MG/1 ML VIAL ONE (15:11)
[2019-01-15] MEDS ORDERED: HYDROmorphone HCL CARPU-JECT 1 MG/1 ML DISP.SYRIN IVPB PRN (15:21)
--- NOTE | 2019-01-15 15:24 | OP ---
Operative Note - Note: Operative Date: 01/15/19 Pre-Operative Diagnosis: Morbid obesity. BMI 39. Obstructive sleep apnea Operation: Diagnostic laparoscopy. Laparoscopic vertical sleeve gastrectomy. Laparoscopic wedge liver biopsy. Laparoscopic oversewing of gastric staple line Post-Operative Diagnosis: Same as Pre-op (as well as hepatomegaly and oozing from gastric staple line) Surgeon: Ramon Hernandez Digital Asset Coordinator: Hardeep Lancaster Anesthesia: General Specimens Removed: Greater curvature of stomach. Liver biopsy Estimated Blood Loss (mls): 30 Drains & Tubes with Location: 36 Fr Bougie Operative Report Dictated: Yes
[2019-01-15] MEDS ORDERED: FAMOTIDINE 20 MG PREMIXED IVPB IVPB ONE (15:30)
[2019-01-15] MEDS ORDERED: SODIUM CHLORIDE 1,000 ML IV SCH (15:30)
[2019-01-15] MEDS: METOCLOPRAMIDE HCL INJECTION 10 MG/2 ML VIAL IVPUSH SCH ×2 (15:35→20:56)
[2019-01-15] MEDS: ACETAMINOPHEN 1000 MG/100 ML VIAL (NON FORMULARY) IVPB SCH ×2 (15:40→20:57)
[2019-01-15] MEDS ORDERED: ONDANSETRON 4 MG/2 ML VIAL IVPUSH PRN (15:41)
[2019-01-15] MEDS ORDERED: LACTATED RINGERS SOLUTION 1,000 ML IV SCH (15:45)
--- NOTE | 2019-01-15 15:48 | SPEC ---
DATE OF OPERATION: 01/15/2019 PLACE OF SERVICE: [facility], [address] [place] [address] SURGEON: Ramon Hernandez MD ADJUNCT PSYCHOLOGY PROFESSOR: Hardeep Lancaster MD PREOPERATIVE DIAGNOSES: 1. Morbid obesity. 2. Body mass index 39. 3. Obstructive sleep apnea. POSTOPERATIVE DIAGNOSES: 1. Morbid obesity. 2. Body mass index 39. 3. Obstructive sleep apnea. 4. Hepatomegaly. 5. Oozing from the gastric staple line. PROCEDURE: Diagnostic laparoscopy, laparoscopic vertical sleeve gastrectomy, laparoscopic wedge liver biopsy, laparoscopic over sewing of gastric staple line for oozing. SPECIMENS: 1. Greater curvature of the stomach. 2. Liver biopsy. ESTIMATED BLOOD LOSS: 30 mL. DRAINS: None. ANESTHESIA: GET. BOUGIE SIZE: 36-Yi. REASON FOR PROCEDURE: This is a 53-year-old female who presented to the office for weight loss options. After describing different options, she decided to proceed with a laparoscopic, possible open, vertical sleeve gastrectomy, possible liver biopsy, upper endoscopy. The patient was seen by the respective subspecialties and cleared for surgery. The risks and benefits of the procedure were explained. These included bleeding, infection, hernia, NH, DVT, PE, injury to surrounding structures including the liver, colon, bowel, spleen, esophagus, vessel injury, nerve injury, weight regain, gastric leak, staple line leak, sleeve leak, obstruction, vitamin deficiency, hair loss and as some of the possible complications. The patient understood and signed informed consent. DESCRIPTION OF PROCEDURE: The patient was placed supine on the operating room table. The patient underwent general endotracheal intubation. The arms were brought out at 90 degrees and secured. A footboard was placed and the legs were secured laterally with padding. The abdomen was prepped and draped in the usual sterile fashion. A timeout was performed. An incision was made in the left upper quadrant and a Veress needle inserted. Pneumoperitoneum was established. Subsequently, the Veress needle was removed and a 5-mm trocar was placed under direct visualization with the laparoscope. The laparoscopic camera was then inserted and inspection of the abdominal cavity was performed. An incision was then made in the supraumbilical area and a 15-mm trocar was placed under direct visualization. A 5-mm trocar was then placed in the right upper quadrant and a 5-mm trocar was placed below the left subcostal margin. A stab wound was made in the subxiphoid area and a Yuli clamp inserted and removed to dilate the tract. A Dinah liver retractor was inserted. The post was secured at the bedside by the nursing staff. The patient was placed in steep reverse Trendelenburg position and the Dinah liver retractor was used to secure the liver towards the anterior abdominal wall. The pylorus was identified and 6 cm proximal to it, the lesser sac was entered using the LigaSure device. All lateral attachments to the greater curvature of the stomach, including the short gastric vessels, were ligated using the LigaSure device toward the gastrosplenic and gastrophrenic ligaments. Once this was done in its entirety, it was confirmed that all tubes within the nasal or oropharyngeal cavity, including a temperature probe were removed by Anesthesia. The bougie was then inserted by Anesthesia. Transection of the stomach was then begun staying adjacent to the bougie but away from the angularis. Transection of the stomach was performed near the portion of the stomach where the lesser sac was entered. Two laparoscopic Endo-JAYLON black peyton were used at this location. Laparoscopic Endo JAYLON purple staple loads were then used for the remainder of the transection until the greater curvature of the stomach was fully transected. This was done staying close to the bougie. Care was taken to stay away from the angle of His cephalad. The staple line was then inspected. Hemostasis was identified. A leak test was then performed. It was clamped distally to the staple line. Irrigation solution was placed in the left upper quadrant and air was insufflated by Anesthesia into the sleeve. No leaks were identified. No obstruction was identified. This was done through the entirety of the staple line. The stomach was suctioned and the bougie removed fully intact under direct visualization. At this point, the irrigation solution was suctioned and again, hemostasis was noted. A wedge liver biopsy was then performed. The left lobe of the liver was identified. A portion of the edge of the left lobe of the liver was grasped. Using electrocautery, a wedge of the left liver was excised. The specimen was removed and sent off the field. Hemostasis of the wedge liver biopsy site was attained and noted using electrocautery. The 15-mm supraumbilical trocar was then removed and the greater curvature specimen removed from the site using a sponge stick carlson. A Kilo-Shelbi device was then used to close the fascia with a 0 Vicryl suture at the site. Again, hemostasis was noted. Because of oozing at part of the gastric staple line, Endo Stitch was used with a 2-0 Ethibond suture to over sew the area. The oozing was stopped and hemostasis noted. The Dinah liver retractor was then removed under direct visualization. Pneumoperitoneum was desufflated. Hemostasis was noted at all incision sites and Marcaine was injected at all incision sites. A 3-0 Vicryl suture was used to close the deep subcutaneous tissue at the 15-mm incision site. All incision sites were closed using 4-0 Biosyn. Sterile dressings were applied. The patient tolerated the procedure well and was transferred to the recovery room in stable condition. Hermelinda SHAIKH/[id number]
[2019-01-15 16:52] LABS: HEMATOCRIT 40.3 % (32.4-45.2); HEMOGLOBIN 13.3 GM/dl (10.7-15.3); MCH 32.1 pg (25.7-33.7); MEAN CELL VOLUME 97.3 fl (80-96); MEAN PLT VOLUME 8.1 fl (7.5-11.1); PLATELET COUNT 291 K/MM3 (134-434); RBC 4.14 M/mm3 (3.60-5.2); RDW 13.5 % (11.6-15.6); WHITE BLOOD COUNT 11.6 K/mm3 (4.0-10.8)
[2019-01-15 17:05] LABS: BILIRUBIN,TOTAL 0.8 mg/dl (0.2-1); CALCIUM 8.8 mg/dl (8.5-10); CREATININE 0.8 mg/dl (0.55-1.3); POTASSIUM 4.2 mmol/L (3.5-5.1); TOT PROT 6.9 g/dl (6.4-8.2)
[2019-01-15] MEDS: HYDROmorphone HCL 0.5 MG/0.5 ML SYRINGE ONE ×2 (17:30→17:40)
[2019-01-15] MEDS ORDERED: HYDROmorphone HCL 0.5 MG/0.5 ML SYRINGE ONE (17:51)
[2019-01-15] MEDS: ONDANSETRON 4 MG/2 ML VIAL IVPUSH SCH ×2 (19:01→20:56)
[2019-01-15] MEDS: BUDESONIDE/FORMETEROL FUMARATE 80/4.5 mcg INHALER IH SCH (21:05)
[2019-01-15] MEDS: ENOXAPARIN NA (PORCINE) 40 MG/0.4 ML DISP.SYRIN SQ SCH (21:06)
[2019-01-15] MEDS: FAMOTIDINE 20 MG/50 ML IVPB 20 MG/50 ML MG IVPB SCH (21:09)
[2019-01-15] MEDS ORDERED: PATIENT'S OWN MEDICATION (NON-FORMULARY) (Dimethyl Fumarate [Tecfidera] 240 MG) PO SCH (22:00)
[2019-01-16] MEDS: ONDANSETRON 4 MG/2 ML VIAL IVPUSH SCH ×4 (00:26→12:10)
[2019-01-16] MEDS: METOCLOPRAMIDE HCL INJECTION 10 MG/2 ML VIAL IVPUSH SCH ×2 (03:08→09:31)
[2019-01-16] MEDS: ACETAMINOPHEN 1000 MG/100 ML VIAL (NON FORMULARY) IVPB SCH ×2 (03:09→09:31)
[2019-01-16 08:56] LABS: HEMATOCRIT 40.4 % (32.4-45.2); HEMOGLOBIN 13.3 GM/dl (10.7-15.3); MCH 32.2 pg (25.7-33.7); MCHC 32.9 g/dl (32.0-36.0); MEAN CELL VOLUME 97.9 fl (80-96); MEAN PLT VOLUME 8.3 fl (7.5-11.1); PLATELET COUNT 271 K/MM3 (134-434); RBC 4.12 M/mm3 (3.60-5.2); RDW 13.7 % (11.6-15.6); WHITE BLOOD COUNT 9.7 K/mm3 (4.0-10.8)
--- NOTE | 2019-01-16 09:02 | PN ---
Progress Note (short form) - Note Progress Note: POD1 s/p lap gastric sleeve under GA. Pt reported pain last night, feeling better today after pain meds given. Able to ambulate, use bathroom, no LOCK, no N /V, doing well, states that she "wants to go home.
[2019-01-16 09:19] LABS: ALBUMIN 3.8 g/dl (3.4-5.0); BILIRUBIN,TOTAL 0.6 mg/dl (0.2-1); CALCIUM 8.5 mg/dl (8.5-10); CREATININE 0.8 mg/dl (0.55-1.3); TOT PROT 6.4 g/dl (6.4-8.2)
[2019-01-16] MEDS: FAMOTIDINE 20 MG/50 ML IVPB 20 MG/50 ML MG IVPB SCH (09:31)
[2019-01-16] MEDS: BUDESONIDE/FORMETEROL FUMARATE 80/4.5 mcg INHALER IH SCH (09:33)
[2019-01-16] MEDS: ENOXAPARIN NA (PORCINE) 40 MG/0.4 ML DISP.SYRIN SQ SCH (09:33)
[2019-01-16] MEDS ORDERED: oxyCODONE HCL 5 MG TABLET PO PRN (11:13)
[2019-01-16] MEDS ORDERED: SODIUM CHLORIDE 1,000 ML IV SCH (11:15)
--- NOTE | 2019-01-16 11:48 | DS ---
Physical Exam: SUBJECTIVE: Patient seen and examined this am. OOB and ambulating, voiding without difficulty. No CP or SOB. OBJECTIVE: Vital Signs Temperature 98.3 F 01/16/19 09:24 Pulse Rate 59 L 01/16/19 09:24 Respiratory Rate 18 01/16/19 09:24 Blood Pressure 108/58 L 01/16/19 09:24 O2 Sat by Pulse Oximetry (%) 95 01/16/19 08:15 PHYSICAL EXAM GENERAL: The patient is awake, alert, and fully oriented, in no acute distress. LUNGS: Breath sounds equal, clear to auscultation bilaterally. HEART: Regular rate and rhythm. ABDOMEN: Soft, nondistended, Inc c/d/i with bandaids. EXTREMITIES: b/l no edema or swelling noted. LABS CBC,CMP WBC 9.7 K/mm3 (4.0-10.8) 01/16/19 08:18 RBC 4.12 M/mm3 (3.60-5.2) 01/16/19 08:18 Hgb 13.3 GM/dl (10.7-15.3) 01/16/19 08:18 Hct 40.4 % (32.4-45.2) 01/16/19 08:18 MCV 97.9 fl (80-96) H 01/16/19 08:18 MCH 32.2 pg (25.7-33.7) 01/16/19 08:18 MCHC 32.9 g/dl (32.0-36.0) 01/16/19 08:18 RDW 13.7 % (11.6-15.6) 01/16/19 08:18 Plt Count 271 K/MM3 (134-434) 01/16/19 08:18 MPV 8.3 fl (7.5-11.1) 01/16/19 08:18 Sodium 140 mmol/L (136-145) 01/16/19 08:18 Potassium 4.0 mmol/L (3.5-5.1) 01/16/19 08:18 Chloride 108 mmol/L (98-107) H 01/16/19 08:18 Carbon Dioxide 23 mmol/L (21-32) 01/16/19 08:18 Anion Gap 9 MMOL/L (8-16) 01/16/19 08:18 BUN 12.0 mg/dl (7-18) 01/16/19 08:18 Creatinine 0.8 mg/dl (0.55-1.3) 01/16/19 08:18 Est GFR (CKD-EPI)AfAm 96.87 01/16/19 08:18 Est GFR (CKD-EPI)NonAf 83.58 01/16/19 08:18 POC Glucometer 123 UNITS (80-120) 01/15/19 15:50 Random Glucose 84 mg/dl (74-106) 01/16/19 08:18 Calcium 8.5 mg/dl (8.5-10) 01/16/19 08:18 Total Bilirubin 0.6 mg/dl (0.2-1) 01/16/19 08:18 AST 36 U/L (15-37) 01/16/19 08:18 ALT 53 U/L (13-61) 01/16/19 08:18 Alkaline Phosphatase 63 U/L (45-117) D 01/16/19 08:18 Total Protein 6.4 g/dl (6.4-8.2) 01/16/19 08:18 Albumin 3.8 g/dl (3.4-5.0) 01/16/19 08:18 HOSPITAL COURSE: HOSPITAL COURSE: The patient was admitted to the Med-Surg Unit after elective bariatric surgery. Now, s/p laparoscopic vertical sleeve gastrectomy. The day of surgery, the patient ambulated the hallways with assistance. The patient was monitored with remote tele/continuous pulse ox. Narcotic and non-narcotic pain management control was achieved with oral and IV pain control. Upper GI series was obtained the following morning and no leak, extravastion or gastric outlet obstruction. Started on a Bariatric Stage 1 diet and tolerated well. Rocio-operative IV ABX were administered in addition to GI prophylaxis. DVT prophylaxis was achieved with SCDs and early ambulation. The discharge instructions and an oral pain management plan were reviewed with the patient. All questions answered. Above plan discussed with Dr. Hernandez and agreed. Date of Admission:01/15/19 Date of Discharge: 01/16/19 Minutes to complete discharge: 20
--- NOTE | 2019-01-16 11:57 | PN ---
Progress Note (short form) - Note Progress Note: POD 1 No acute events reported Vital Signs Period Temp Pulse Resp BP Sys/Winn Pulse Ox Last 24 Hr 97.5 F-98.3 F 59-92 16-18 106-140/48-80 94-98 CBC,CMP WBC 9.7 K/mm3 (4.0-10.8) 01/16/19 08:18 RBC 4.12 M/mm3 (3.60-5.2) 01/16/19 08:18 Hgb 13.3 GM/dl (10.7-15.3) 01/16/19 08:18 Hct 40.4 % (32.4-45.2) 01/16/19 08:18 MCV 97.9 fl (80-96) H 01/16/19 08:18 MCH 32.2 pg (25.7-33.7) 01/16/19 08:18 MCHC 32.9 g/dl (32.0-36.0) 01/16/19 08:18 RDW 13.7 % (11.6-15.6) 01/16/19 08:18 Plt Count 271 K/MM3 (134-434) 01/16/19 08:18 MPV 8.3 fl (7.5-11.1) 01/16/19 08:18 Sodium 140 mmol/L (136-145) 01/16/19 08:18 Potassium 4.0 mmol/L (3.5-5.1) 01/16/19 08:18 Chloride 108 mmol/L (98-107) H 01/16/19 08:18 Carbon Dioxide 23 mmol/L (21-32) 01/16/19 08:18 Anion Gap 9 MMOL/L (8-16) 01/16/19 08:18 BUN 12.0 mg/dl (7-18) 01/16/19 08:18 Creatinine 0.8 mg/dl (0.55-1.3) 01/16/19 08:18 Est GFR (CKD-EPI)AfAm 96.87 01/16/19 08:18 Est GFR (CKD-EPI)NonAf 83.58 01/16/19 08:18 POC Glucometer 123 UNITS (80-120) 01/15/19 15:50 Random Glucose 84 mg/dl (74-106) 01/16/19 08:18 Calcium 8.5 mg/dl (8.5-10) 01/16/19 08:18 Total Bilirubin 0.6 mg/dl (0.2-1) 01/16/19 08:18 AST 36 U/L (15-37) 01/16/19 08:18 ALT 53 U/L (13-61) 01/16/19 08:18 Alkaline Phosphatase 63 U/L (45-117) D 01/16/19 08:18 Total Protein 6.4 g/dl (6.4-8.2) 01/16/19 08:18 Albumin 3.8 g/dl (3.4-5.0) 01/16/19 08:18 UGI: no leak/obstruction Clears Discharge home Problem List - Problems (1) Morbid obesity due to excess calories Code(s): E66.01 - MORBID (SEVERE) OBESITY DUE TO EXCESS CALORIES (2) BMI 39.0-39.9,adult Code(s): Z68.39 - BODY MASS INDEX (BMI) 39.0-39.9, ADULT (3) Obstructive sleep apnea Code(s): G47.33 - OBSTRUCTIVE SLEEP APNEA (ADULT) (PEDIATRIC)
[2019-01-16 15:06] VITALS: BP 110/58; PULSE 61; TEMP 98.8
--- NOTE | 2019-01-22 16:29 | PATH ---
Surgical Pathology Report Patient Name: NATALIYA LINDSAY Med. Rec. #: [id number] /Age/Gender: 1965 (Age: 53) / F Account: [id number] Location: [facility] Taken: 01/15/2019 Received: 01/15/2019 Reported: 01/22/2019 Physicians: Ramon Hernandez M.D. Specimen(s) Received A: GREATER CURVATURE STOMACH B: LIVER BIOPSY Clinical History Morbid obesity Final Diagnosis A. STOMACH, GREATER CURVATURE, LAPAROSCOPIC VERTICAL SLEEVE GASTRECTOMY: PORTION OF STOMACH WITH MILD CHRONIC GASTRITIS. IMMUNOHISTOCHEMICAL STAIN FOR H. PYLORI IS NEGATIVE. B. LIVER, BIOPSY: LIVER PARENCHYMA WITH MILD PATCHY STEATOSIS (~15-20%). NO INCREASE IN IRON AND FIBROSIS ON PERFORMED SPECIAL STAINS (IRON AND TRICHROME). Electronically Signed Lorie Baxter M.D. Gross Description A. Received in formalin, labeled "greater curvature of stomach," is a 71 gram, 19.0 x 2.5 x 2.3 cm. portion of stomach with a stapled margin of resection. The serosa is rae-christianson with minimal attached fat. The mucosa is rae-pink with normal folds. No mucosal masses are identified. Voice Engineer sections are submitted in one cassette. B. Received in formalin labeled "liver biopsy," is a 2.5 x 1.1 x 0.5 cm rae portion of soft tissue, consistent with a portion of liver. The specimen is bisected and entirely submitted in one cassette. 01/17/2019 saudi01/17/2019
== END 2019-01-16 14:02 | disposition home or self-care (01) | DRG 403 ==
LOC: FM/S 11:49
PROVIDERS: ADMIT Surgery; ATTEND Surgery
PROC: 0W3P4ZZ Control Bleeding in Gastrointestinal Tract, Percutaneous Endoscopic Approach (ICD-10-PCS; 2019-01-15)
PROC: 0DB64Z3 Excision of Stomach, Percutaneous Endoscopic Approach, Vertical (ICD-10-PCS; principal; 2019-01-15 14:00)
PROC: 0FB24ZX Excision of Left Lobe Liver, Percutaneous Endoscopic Approach, Diagnostic (ICD-10-PCS; 2019-01-15 14:00)
DX: E66.01 Morbid (severe) obesity due to excess calories (principal); Z68.37 Body mass index [BMI] 37.0-37.9, adult; R16.0 Hepatomegaly, not elsewhere classified; G47.33 Obstructive sleep apnea (adult) (pediatric); G35 Multiple sclerosis
CPT/HCPCS: 36415; 74241-TC-FY; 80053; 82962; 85027; 88305-TC; 94760; J0131; J7030; Q9967

== ENCOUNTER 2020-01-15 21:13 | Emergency (ER) | payer OTHER | END 2020-01-15 21:37 | disposition home or self-care (01) | LOC: JVIRT 21:13 | DX: Z03.818 Encounter for observation for suspected exposure to other biological agents ruled out (principal) | CPT/HCPCS: C9803; Q3014-GT; U0003 ==